=== PATIENT | male | born 1995 ===

== ENCOUNTER 2016-07-21 10:08 | Emergency (ER) | payer OTHER ==
[2016-07-21 10:19] VITALS: BP 162/67; PULSE 74; RESP 16; TEMP 98.3; O2SAT 98
[2016-07-21] MEDS ORDERED: Lidocaine 2% Inj (20ml) INFIL ONE (10:28)
[2016-07-21] MEDS ORDERED: Lidocaine 2% Inj (20ml) ONE (10:30)
--- NOTE | 2016-07-21 10:31 | C.PDOC ---
History Of Present Illness 20 y/o male presents to the ED for evaluation of laceration to right forearm sustained approximately 20 minutes ago. Pt states he was running and fell hitting his arm. Denies head strike, LOC, nausea, vomiting, pain, weakness, numbness or any other complaints. Time Seen by Provider: 07/21/16 10:20 Chief Complaint (Nursing): Abnormal Skin Integrity History Per: Patient History/Exam Limitations: no limitations Onset/Duration Of Symptoms: Mins Current Symptoms Are (Timing): Still Present Location Of Injury: Right: Arm Severity: Moderate Recent travel outside of the [place]: No Past Medical History Reviewed: Historical Data, Nursing Documentation, Vital Signs Vital Signs: Last Vital Signs Temp 98.3 F 07/21/16 10:16 Pulse 74 07/21/16 10:16 Resp 16 07/21/16 10:16 BP 162/67 H 07/21/16 10:16 Pulse Ox 98 07/21/16 10:34 Family History: States: No Known Family Hx - Social History Hx Alcohol Use: Yes Hx Substance Use: No - Immunization History Hx Tetanus Toxoid Vaccination: Yes Hx Influenza Vaccination: No Hx Pneumococcal Vaccination: No Review Of Systems Gastrointestinal: Negative for: Nausea, Vomiting Musculoskeletal: Negative for: Arm Pain Skin: Positive for: Other (laceration to right forearm) Neurological: Negative for: Weakness, Numbness Physical Exam - Physical Exam Additional Physical Exam Comments: Constitutional: No acute distress. Head: Normocephalic. Atraumatic. Cardiovascular: Right radial pulse 2+. Musculoskeletal: No tenderness or swelling of extremities. FROM. Skin: No rash. 2 cm laceration to right forearm, no active bleeding. Neurologic: Alert, no focal deficit. No numbness. Motor 5/5. ED Course And Treatment O2 Sat by Pulse Oximetry: 98 (room air) Pulse Ox Interpretation: Normal Laceration - Laceration Repair No standard instances Wound Length (In cm): 2 Description Of Wound: Linear Anesthesia: Lidocaine 2% Wound Examination: Irrigated With Saline, No FB With Wound Exploration, No Tendon Injury With Wound Exploration Wound Closure: Suture (4-0 Nylon, 3 sutures) Suture Technique And Material Used: Interrupted Wound Complexity: Simple Medical Decision Making Medical Decision Making: Tetanus updated. Performed laceration repair. Applied bacitracin and dressed with gauze. Discharged patient home, instructed to return in 7 days to have sutures removed. Return immediately for discharge, erythema or fever. Disposition - Disposition Referrals: [facility] [Outside] Disposition: HOME/ ROUTINE Disposition Time: 11:28 Condition: STABLE Instructions: Care For Your Stitches (ED) - Clinical Impression Clinical Impression: Laceration - Scribe Statement The provider has reviewed the documentation as recorded by the Mattibfrankie Candelaria Provider Attestation: All medical record entries made by the Mattibfrankie were at my direction and personally dictated by me. I have reviewed the chart and agree that the record accurately reflects my personal performance of the history, physical exam, medical decision making, and the department course for this patient. I have also personally directed, reviewed, and agree with the discharge instructions and disposition.
[2016-07-21] MEDS ORDERED: Bacitracin 500 Units/gm Oint Foilpak UD ONE (11:09)
== END 2016-07-21 11:35 | disposition home or self-care (01) ==
LOC: C.ER 10:08
DX: S51.811A Laceration without foreign body of right forearm, initial encounter (principal); W18.39XA Other fall on same level, initial encounter; Y93.02 Activity, running; Y92.89 Other specified places as the place of occurrence of the external cause

== ENCOUNTER 2017-01-03 19:04 | Emergency (ER) | payer SELFPAY ==
[2017-01-03 19:27] VITALS: RESP 18; TEMP 98.2
[2017-01-03] MEDS ORDERED: Dexamethasone 4 mg/1 ml IM STA (19:53)
[2017-01-03] MEDS ORDERED: Dexamethasone 4 mg/1 ml ONE (20:17)
--- NOTE | 2017-01-03 20:46 | C.PDOC ---
History Of Present Illness 21 year old male presents to the ED for evaluation of sore throat which began 2 days ago. Patient states his tonsils feel swollen. He denies fever, cough, runny nose, ear pain. Time Seen by Provider: 01/03/17 19:29 Chief Complaint (Nursing): ENT Problem History Per: Patient History/Exam Limitations: None Onset/Duration Of Symptoms: Days (2) Current Symptoms Are (Timing): Still Present Quality (Mouth/Throat): Swelling (tonsils) Past Medical History Reviewed: Historical Data, Nursing Documentation, Vital Signs Vital Signs: Last Vital Signs Temp 98.2 F 01/03/17 19:26 Pulse 75 01/03/17 20:52 Resp 18 01/03/17 20:52 BP 124/72 01/03/17 20:52 Pulse Ox 100 01/03/17 22:03 - Medical History PMH: No Chronic Diseases Surgical History: No Surg Hx Family History: States: Unknown Family Hx - Social History Hx Alcohol Use: Yes Hx Substance Use: No - Immunization History Hx Tetanus Toxoid Vaccination: Yes Hx Influenza Vaccination: No Hx Pneumococcal Vaccination: No Review Of Systems Constitutional: Negative for: Fever, Chills ENT: Positive for: Throat Pain. Negative for: Ear Pain, Nose Discharge Respiratory: Negative for: Cough Physical Exam - Physical Exam Appears: Non-toxic, No Acute Distress Skin: Normal Color, Warm, Dry Head: Atraumatic, Normacephalic Eye(s): bilateral: Normal Inspection Ear(s): Bilateral: Normal Nose: Normal, No Discharge Oral Mucosa: Moist Throat: Exudate (tonsillar ), Other (moderately enlarged tonsils (R>L) ; uvula at midline ) Lymphatic: Adenopathy (submandibular, with tenderness ) Chest: Symmetrical, No Deformity, No Tenderness Cardiovascular: Rhythm Regular, No Murmur Respiratory: Normal Breath Sounds, No Rales, No Rhonchi, No Wheezing Neurological/Psych: Normal Speech, Normal Cognition ED Course And Treatment O2 Sat by Pulse Oximetry: 100 (on RA) Pulse Ox Interpretation: Normal Progress Note: Decadron IM, Motrin PO, Penicillin PO, and Lidocaine PO administered. On reassessment, patient is resting comfortably, showing no signs of distress, remains afebrile and reports an improvement in his symptoms. Patient is stable for discharge and is advised to follow up with his PMD within 1-2 days for further evaluation and/or return to the ED if symptoms return or worsen. Disposition - Disposition Referrals: Non [facility] Provider, [Primary Care Provider] - Disposition: HOME/ ROUTINE Disposition Time: 20:45 Condition: STABLE Additional Instructions: Please follow up with PMD Take meds as directed Return to ER if worse Prescriptions: Ibuprofen [Motrin Tab] 800 mg PO QID #20 tab Penicillin VK [Penicillin VK Tab] 500 mg PO Q6H #28 tab Instructions: Tonsillitis (ED) Print Language: TUNISIAN - Clinical Impression Clinical Impression: Tonsillitis - PA / [employer] / Resident Statement MD/DO has reviewed & agrees with the documentation as recorded. - Scribe Statement The provider has reviewed the documentation as recorded by the Scribe (Gertrudis Magdaleno) All medical record entries made by the Scribe were at my direction and personally dictated by me. I have reviewed the chart and agree that the record accurately reflects my personal performance of the history, physical exam, medical decision making, and the department course for this patient. I have also personally directed, reviewed, and agree with the discharge instructions and disposition.
[2017-01-03 20:53] VITALS: BP 124/72; PULSE 75
[2017-01-03 22:00] VITALS: O2SAT 100
== END 2017-01-03 21:01 | disposition home or self-care (01) ==
LOC: C.ER 19:04 → SUPCPDRO 19:04 → C.ER 21:01
DX: J03.90 Acute tonsillitis, unspecified (principal)
CPT/HCPCS: 96372; 99283; J1100